=== PATIENT | female | born 1980 | race African-American/Black ===

== ENCOUNTER 2023-01-29 00:10 | Emergency (ER) | payer MEDICAID, OTHER ==
[~2023-01-29] VITALS: Ht 157.5 cm; Wt 95.0 kg
[2023-01-29 00:16] VITALS: O2SAT 99
[2023-01-29] MEDS ORDERED: HYDROCODONE/ACETAMINOPHEN 10/325MG TABLET PO ONE (01:15)
[2023-01-29] MEDS ORDERED: KETOROLAC 60MG/2ML VIAL IM ONE (01:15)
[2023-01-29] MEDS ORDERED: IBUP-2030 MT (01:25)
[2023-01-29] MEDS ORDERED: CYCL5TAB MT (01:25)
[2023-01-29 01:47] VITALS: BP 132/87
[2023-01-29 02:07] VITALS: PULSE 92; RESP 18; TEMP 98.4
== END 2023-01-29 02:08 | disposition home or self-care (01) ==
LOC: ER 00:10
DX: S16.1XXA Strain of muscle, fascia and tendon at neck level, initial encounter (principal); M79.662 Pain in left lower leg; M79.661 Pain in right lower leg; Z88.5 Allergy status to narcotic agent; V89.0XXA Person injured in unspecified motor-vehicle accident, nontraffic, initial encounter; Y93.89 Activity, other specified; Y92.89 Other specified places as the place of occurrence of the external cause; Y99.8 Other external cause status
CPT/HCPCS: 81025; 96372; 99283; J1885; Z7610